=== PATIENT | male | born 1965 | race American Indian/Alaskan Native ===

== ENCOUNTER 2016-09-11 13:50 | Outpatient (CLI) | payer OTHER ==
[2016-09-11 14:23] LABS: Alanine Aminotransferase 18 units/L (7-56); Albumin 4.5 g/dL (3.9-5); Albumin/Globulin Ratio 1.6 %; Alkaline Phosphatase 84 units/L (35-129); Anion Gap 16 mmol/L; Blood Urea Nitrogen 11 mg/dL (9-20); Carbon Dioxide 30 mmol/L (22-30); Chloride 96.7 mmol/L (98-107); Glucose 110 mg/dL (75-100); Sodium 139 mmol/L (137-145); Total Protein 7.4 g/dL (6.3-8.2)
== END 2016-09-11 13:51 | disposition home or self-care (01) ==
LOC: LABHHL 13:50
PROVIDERS: ATTEND Student in an Organized Health Care Education/Training Program
DX: R07.9 Chest pain, unspecified (principal)
CPT/HCPCS: 36415; 80053; 84484

== ENCOUNTER 2017-12-30 08:53 | Emergency (ER) | payer OTHER ==
--- NOTE | 2017-12-30 09:42 | Emergency Department Report ---
ED Fall HPI - General Chief Complaint: Fall Stated Complaint: FALL/HIP PAIN/LOWER BACK PAIN Time Seen by Provider: 12/30/17 09:38 Source: patient, EMS Mode of arrival: Stretcher Limitations: No Limitations - History of Present Illness Initial Comments: Mr. Bunch is a 52 years old male with history of hypertension and obstructive sleep apnea. Patient brought to the ER via EMS after he sustained a fall at a gas station. Patient stated that he slipped and fell into the bathroom. Patient denied any prior symptoms. He is complaining of lower back pain and left hip pain. Patient denied any headache but he stated that he hit his head also. Patient denied any neck pain, chest pain, abdominal pain or other extremity pain. MD Complaint: fall -: Sudden Fall From: standing Fall Witnessed: yes, by bystander Place Fall Occurred: other (gas station) Loss of Consciousness: none Prolonged Down Time?: no Symptoms Prior to Fall: none Location: head, back, pelvis Severity: moderate Severity scale (0 -10): 6 Associated Symptoms: denies - Related Data Previous Rx's Medication Instructions Recorded Last Taken Type Cyclobenzaprine [Flexeril 10 MG 10 mg PO TID PRN #30 tablet 11/07/14 Unknown Rx TAB] HYDROcodone/APAP 5-325 [Valley 1 each PO Q6HR PRN #20 tablet 11/07/14 Unknown Rx 5-325 mg TAB] Ibuprofen [Motrin 600 MG tab] 600 mg PO Q8H PRN #40 tablet 11/07/14 Unknown Rx Allergies Allergy/AdvReac Type Severity Reaction Status Date / Time No Known Allergies Allergy Verified 11/07/14 01:02 ED Review of Systems ROS: Stated complaint: FALL/HIP PAIN/LOWER BACK PAIN Other details as noted in HPI Comment: All other systems reviewed and negative Constitutional: denies: chills, fever Respiratory: denies: cough, orthopnea, shortness of breath, SOB with exertion, SOB at rest, wheezing Cardiovascular: denies: chest pain, palpitations Gastrointestinal: denies: abdominal pain, nausea, vomiting Genitourinary: denies: urgency, dysuria, frequency, hematuria, discharge, testicular pain, testicular mass Musculoskeletal: back pain Neurological: denies: headache, weakness, numbness, paresthesias, confusion ED Past Medical Hx - Past Medical History Previous Medical History?: Yes Hx Hypertension: Yes Additional medical history: sleep apnea - Surgical History Additional Surgical History: abd - Social History Smoking Status: Current Every Day Smoker Substance Use Type: None - Medications Home Medications: Home Medications Medication Instructions Recorded Confirmed Last Taken Type Cyclobenzaprine [Flexeril 10 MG 10 mg PO TID PRN #30 tablet 11/07/14 Unknown Rx TAB] HYDROcodone/APAP 5-325 [Valley 1 each PO Q6HR PRN #20 tablet 11/07/14 Unknown Rx 5-325 mg TAB] Ibuprofen [Motrin 600 MG tab] 600 mg PO Q8H PRN #40 tablet 11/07/14 Unknown Rx ED Physical Exam - General Limitations: No Limitations General appearance: alert, in no apparent distress - Head Head exam: Present: atraumatic, normocephalic, normal inspection - Eye Eye exam: Present: normal appearance, PERRL - ENT ENT exam: Present: normal exam, normal orophraynx, mucous membranes moist, normal external ear exam - Neck Neck exam: Present: normal inspection, full ROM. Absent: tenderness, meningismus, lymphadenopathy, thyromegaly - Respiratory Respiratory exam: Present: normal lung sounds bilaterally. Absent: respiratory distress, rales, rhonchi, chest wall tenderness, accessory muscle use, decreased breath sounds, prolonged expiratory - Cardiovascular Cardiovascular Exam: Present: regular rate, normal rhythm, normal heart sounds - GI/Abdominal GI/Abdominal exam: Present: soft, normal bowel sounds. Absent: distended, tenderness, guarding, rebound, rigid, organomegaly, mass, bruit, pulsatile mass , hernia - Extremities Exam Extremities exam: Present: normal inspection, full ROM, normal capillary refill. Absent: tenderness, pedal edema, calf tenderness - Back Exam Back exam: Present: normal inspection, full ROM, paraspinal tenderness. Absent : tenderness, CVA tenderness (R), CVA tenderness (L), muscle spasm, vertebral tenderness - Neurological Exam Neurological exam: Present: alert, oriented X3, CN II-XII intact, reflexes normal - Skin Skin exam: Present: warm, intact, normal color ED Course Vital Signs 12/30/17 12/30/17 12/30/17 09:04 09:15 09:25 Temperature 97.4 F L 97.4 F L Pulse Rate 82 82 Respiratory 12 12 Rate Blood Pressure 129/82 Blood Pressure 129/82 129/82 [Left] O2 Sat by Pulse 97 97 99 Oximetry 12/30/17 12/30/17 12/30/17 09:31 09:45 10:01 Temperature Pulse Rate Respiratory Rate Blood Pressure 140/89 132/109 132/109 Blood Pressure [Left] O2 Sat by Pulse 83 L 87 97 Oximetry ED Medical Decision Making - Radiology Data Radiology results: report reviewed Referring Physician: SHEILA CARRASCO Patient Name: HAKEEM PECK Date of : 1965 Sex: Male Report Date: 2017-12-30 Report Status: Finalized Findings [address] [address] Cat Scan Report Signed Patient: HAKEEM PECK MR#: [id number] : 1965 Acct:[id number] Age/Sex: 52 / M ADM Date: 12/30/17 Loc: ED Attending Dr: Ordering Physician: SHEILA CARRASCO Date of Service: 12/30/17 Procedure(s): CT head/brain wo con Accession Number(s): [id number] cc: SHEILA CARRASCO FINAL REPORT EXAM: CT HEAD/BRAIN WO CON HISTORY: Fall TECHNIQUE: CT of the Head without IV contrast. PRIORS: None currently available. FINDINGS: There is no evidence for acute ischemia. There is no hemorrhage. There is no midline shift. There is no hydrocephalus. There is no mass. Age appropriate aragon-white matter attenuation is noted. There is no calvarial fracture. The temporal bones demonstrate aerated mastoid air cells. The middle ears appear unremarkable. Paranasal sinuses are unremarkable. Globes are intact. IMPRESSION: No acute intracranial findings. Transcribed By: TYM Dictated By: EMEKA ZHOU MD Electronically Authenticated By: EMEKA ZHOU MD Signed Date/Time: 12/30/17 1023 DD/ 1023 TD/TT: 12/30/17 1023 Referring Physician: SHEILA CARRASCO Patient Name: HAKEEM PECK Date of : 1965 Sex: Male Report Date: 2017-12-30 Report Status: Finalized Findings [address] [address] XRay Report Signed Patient: HAKEEM PECK MR#: [id number] : 1965 Acct:[id number] Age/Sex: 52 / M ADM Date: 12/30/17 Loc: ED Attending Dr: Ordering Physician: SHEILA CARRASCO Date of Service: 12/30/17 Procedure(s): XR hip 2-3V LT Accession Number(s): [id number] cc: SHEILA CARRASCO Fluoro Time In Minutes: FINAL REPORT EXAM: XR HIP 2-3V LT HISTORY: Fall; left hip pain TECHNIQUE: Single view pelvis and 3 view(s) left hip. PRIORS: None currently available. FINDINGS: PELVIS: Sacroiliac joints are unremarkable. There is no acute dislocation. There is no acute fracture. There is no evidence for healing fracture. There is no cortical destruction to suggest osteomyelitis. There are no suspicious osseous lesions. There are no radiopaque foreign objects. Degenerative changes in the spine and both hips. LEFT HIP: Cltj-gv-ziso articulation. Subchondral sclerosis, remodeling, and lucencies. Marginal osteophytes. There is no acute dislocation. Unusual angulation at the femoral head/neck may represent a impacted fracture which is difficult to clearly visualized because of the arthritic buttressing. There is no cortical destruction to suggest osteomyelitis. There are no suspicious osseous lesions. There are no radiopaque foreign objects. IMPRESSION: Suspect left proximal femur fracture. No left pelvic fracture. CT pelvis may be helpful for better evaluation if clinically indicated. Severe osteoarthritis in the left hip. Transcribed By: TYM Dictated By: EMEKA ZHOU MD Electronically Authenticated By: EMEKA ZHOU MD Signed Date/Time: 12/30/17 1109 DD/ 1109 TD/TT: 12/30/17 1109 Referring Physician: SHEILA CARRASCO Patient Name: HAKEEM PECK Date of : 1965 Sex: Male Report Date: 2017-12-30 Report Status: Finalized Findings [facility] [address] [place] [address] Cat Scan Report Signed Patient: HAKEEM PECK MR#: [id number] : 1965 Acct:[id number] Age/Sex: 52 / M ADM Date: 12/30/17 Loc: ED Attending Dr: Ordering Physician: SHEILA CARRASCO Date of Service: 12/30/17 Procedure(s): CT lower extremity LT wo con Accession Number(s): [id number] cc: SHEILA CARRASCO FINAL REPORT EXAM: CT LOWER EXTREMITY LT WO CON HISTORY: left hip pain, suspected left femoral fracture on TECHNIQUE: CT left hip without IV contrast. Coronal and sagittal reconstructed imaging provided. PRIORS: None currently available. FINDINGS: Qgix-te-evcn articulation with subchondral sclerosis, lucencies, remodeling, and marginal osteophytes. Unusual angulation to the femoral neck may be related to prior trauma or arthritic buttressing. Increased cortical thickening along medial margin and marginal osteophytes along the lateral aspect suggest chronic changes. No distinct acute fracture line is evident. No dislocation. Acetabulum is unremarkable. Sacrum and iliac bones are grossly unremarkable. Left SI joints grossly unremarkable. There is no cortical destruction to suggest osteomyelitis. There are no suspicious osseous lesions. There are no radiopaque foreign objects. Images of the pelvis are unremarkable. No hematoma. No significant fluid collection. No joint effusion. IMPRESSION: No acute osseous findings. Severe left hip osteoarthritis. Transcribed By: TYM Dictated By: EMEKA ZHOU MD Electronically Authenticated By: EMEKA ZHOU MD Signed Date/Time: 12/30/171335 DD/ 35 TD/TT: 12/30/171335 Referring Physician: SHEILA CARRASCO Patient Name: HAKEEM PECK Date of : 1965 Sex: Male Report Date: 2017-12-30 Report Status: Finalized Findings [facility] [address] [place] [address] XRay Report Signed Patient: HAKEEM PECK MR#: [id number] : 1965 Acct:[id number] Age/Sex: 52 / M ADM Date: 12/30/17 Loc: ED Attending Dr: Ordering Physician: SHEILA CARRASCO Date of Service: 12/30/17 Procedure(s): XR spine lumbosacral 2-3V Accession Number(s): [id number] cc: SHEILA Velásquez Time In Minutes: FINAL REPORT EXAM: XR SPINE LUMBOSACRAL 2-3V HISTORY: fall; lower back pain TECHNIQUE: Three views lumbar spine. PRIORS: None currently available. FINDINGS: Straightening of the normal lordotic alignment. Vertebral body heights are uniform. No fracture. Flul-se-ywiuyqpa degenerative disc at L3-L4. Severe degenerative disc at L4-S1. Posterior facet arthropathy at L3-S1. Anterior osteophytes. Mild disc space narrowing with grade 1 posterior subluxation at L2-L3. Otherwise disc spaces are intact. No scoliosis. No suspicious osseous lesions. No vertebral anomalies. SI joints are unremarkable. IMPRESSION: No fracture. Nonspecific straightening of the normal lordotic alignment. Degenerative discs. Transcribed By: TYM Dictated By: EMEKA ZHOU MD Electronically Authenticated By: EMEKA ZHOU MD Signed Date/Time: 12/30/171342 DD/ 42 TD/TT: 12/30/171342 - Medical Decision Making Patient stated that he is feeling better. X-ray of neck, back and left hip was no acute fracture. I advised patient to follow up with his primary care physician and to follow-up with orthopedic for severe osteoarthritis on the left hip. Critical care attestation.: If time is entered above; I have spent that time in minutes in the direct care of this critically ill patient, excluding procedure time. ED Disposition Clinical Impression: Fall, Hip pain, left, Back pain Disposition: TO HOME OR SELFCARE Is pt being admited?: No Condition: Stable Instructions: Minor Head Injury (ED), Hip Sprain (ED), Lumbar Radiculopathy (ED ) Referrals: PRIMARY CARE, [Primary Care Provider] - 3-5 Days
--- NOTE | 2017-12-30 10:24 | Cat Scan Report ---
FINAL REPORT EXAM: CT HEAD/BRAIN WO CON HISTORY: Fall TECHNIQUE: CT of the Head without IV contrast. PRIORS: None currently available. FINDINGS: There is no evidence for acute ischemia. There is no hemorrhage. There is no midline shift. There is no hydrocephalus. There is no mass. Age appropriate aragon-white matter attenuation is noted. There is no calvarial fracture. The temporal bones demonstrate aerated mastoid air cells. The middle ears appear unremarkable. Paranasal sinuses are unremarkable. Globes are intact. IMPRESSION: No acute intracranial findings.
--- NOTE | 2017-12-30 11:09 | XRay Report ---
FINAL REPORT EXAM: XR HIP 2-3V LT HISTORY: Fall; left hip pain TECHNIQUE: Single view pelvis and 3 view(s) left hip. PRIORS: None currently available. FINDINGS: PELVIS: Sacroiliac joints are unremarkable. There is no acute dislocation. There is no acute fracture. There is no evidence for healing fracture. There is no cortical destruction to suggest osteomyelitis. There are no suspicious osseous lesions. There are no radiopaque foreign objects. Degenerative changes in the spine and both hips. LEFT HIP: Bton-sa-kwbj articulation. Subchondral sclerosis, remodeling, and lucencies. Marginal osteophytes. There is no acute dislocation. Unusual angulation at the femoral head/neck may represent a impacted fracture which is difficult to clearly visualized because of the arthritic buttressing. There is no cortical destruction to suggest osteomyelitis. There are no suspicious osseous lesions. There are no radiopaque foreign objects. IMPRESSION: Suspect left proximal femur fracture. No left pelvic fracture. CT pelvis may be helpful for better evaluation if clinically indicated. Severe osteoarthritis in the left hip.
--- NOTE | 2017-12-30 13:37 | Cat Scan Report ---
FINAL REPORT EXAM: CT LOWER EXTREMITY LT WO CON HISTORY: left hip pain, suspected left femoral fracture on TECHNIQUE: CT left hip without IV contrast. Coronal and sagittal reconstructed imaging provided. PRIORS: None currently available. FINDINGS: Bbax-uh-qshp articulation with subchondral sclerosis, lucencies, remodeling, and marginal osteophytes. Unusual angulation to the femoral neck may be related to prior trauma or arthritic buttressing. Increased cortical thickening along medial margin and marginal osteophytes along the lateral aspect suggest chronic changes. No distinct acute fracture line is evident. No dislocation. Acetabulum is unremarkable. Sacrum and iliac bones are grossly unremarkable. Left SI joints grossly unremarkable. There is no cortical destruction to suggest osteomyelitis. There are no suspicious osseous lesions. There are no radiopaque foreign objects. Images of the pelvis are unremarkable. No hematoma. No significant fluid collection. No joint effusion. IMPRESSION: No acute osseous findings. Severe left hip osteoarthritis.
--- NOTE | 2017-12-30 13:44 | XRay Report ---
FINAL REPORT EXAM: XR SPINE LUMBOSACRAL 2-3V HISTORY: fall; lower back pain TECHNIQUE: Three views lumbar spine. PRIORS: None currently available. FINDINGS: Straightening of the normal lordotic alignment. Vertebral body heights are uniform. No fracture. Oyai-ix-ikahcuxt degenerative disc at L3-L4. Severe degenerative disc at L4-S1. Posterior facet arthropathy at L3-S1. Anterior osteophytes. Mild disc space narrowing with grade 1 posterior subluxation at L2-L3. Otherwise disc spaces are intact. No scoliosis. No suspicious osseous lesions. No vertebral anomalies. SI joints are unremarkable. IMPRESSION: No fracture. Nonspecific straightening of the normal lordotic alignment. Degenerative discs.
[2017-12-30 15:59] VITALS: BP 119/77
--- NOTE | 2017-12-30 16:17 | XRay Report ---
FINAL REPORT EXAM: XR SPINE CERVICAL 2-3V HISTORY: neck injury TECHNIQUE: Four views cervical spine. PRIORS: None currently available. FINDINGS: Mild disc space narrowing at C3-C4. Moderate degenerative disc at C5-T1. Endplate degenerative changes. Anterior osteophytes. Straightening of the normal lordotic alignment. No fracture. No subluxation. Prevertebral soft tissues are unremarkable. No scoliosis. No suspicious osseous lesions. No vertebral anomalies. IMPRESSION: No fracture. Multilevel degenerative discs. Nonspecific straightening of the normal lordotic alignment.
== END 2017-12-30 16:00 | disposition home or self-care (01) ==
LOC: ED 08:53
DX: S09.90XA Unspecified injury of head, initial encounter (principal); M54.5 Low back pain; M25.552 Pain in left hip; F17.200 Nicotine dependence, unspecified, uncomplicated; W18.30XA Fall on same level, unspecified, initial encounter; Y93.89 Activity, other specified; Y92.89 Other specified places as the place of occurrence of the external cause; Y99.8 Other external cause status
CPT/HCPCS: 70450; 72040; 72100